=== PATIENT | male | born 2000 | race Caucasian/White ===

== ENCOUNTER 2020-07-16 03:03 | Emergency (ER) | payer SELFPAY ==
[2020-07-16] MEDS ORDERED: Mag-Al 1200 mg/1200 mg/30 ML UDCUP ONE (03:56)
[2020-07-16] MEDS ORDERED: Lidocaine Viscous Sol 2% 15 ml UD Cup ONE (03:56)
--- NOTE | 2020-07-16 07:50 | RAD ---
XR Chest 1 View Portable HISTORY: Chest pain COMPARISON: None FINDINGS: The heart size is normal. The lungs are well expanded without focal areas of consolidation, pneumothorax or pleural effusions. IMPRESSION: No radiographic evidence of acute cardiopulmonary process.
== END 2020-07-16 04:36 | disposition home or self-care (01) ==
LOC: ERS 03:03
DX: R07.9 Chest pain, unspecified (principal); R10.13 Epigastric pain; R05 Cough; R07.0 Pain in throat; F17.290 Nicotine dependence, other tobacco product, uncomplicated
CPT/HCPCS: 71045; 93005

== ENCOUNTER 2023-03-06 10:22 | Emergency (ER) | payer SELFPAY | END 2023-03-06 11:16 | LOC: ERS 10:22 | DX: J06.9 Acute upper respiratory infection, unspecified (principal); H92.01 Otalgia, right ear; F17.290 Nicotine dependence, other tobacco product, uncomplicated | CPT/HCPCS: 99283 ==